=== PATIENT | female | born 1965 | race Caucasian/White ===

== ENCOUNTER 2017-06-05 08:50 | Emergency (ER) | payer BC ==
--- NOTE | 2017-06-06 09:55 | ER ---
ADMIT: 06/05/2017 RM/LOC: ER [facility] MR#: [id number] [place], [place] [id number] HUMBERTO ARMSTRONGKELLI Booth [address] [place] [address] Emergency Room Report SEX: F AGE: 52 : 1965 DATE: 06/05/2017 CHIEF COMPLAINT: Shortness of breath. HISTORY OF PRESENT ILLNESS: A 52-year-old white female, presents to the ER with 5 to 6 days duration of increasing shortness of breath. No upper respiratory symptoms. She states that she has multiple sick contacts at home. She admits to runny nose, sore throat, cough, mild shortness of breath, this is worse with physical activity and deep breath. She currently works at [employer]. She has been trying [id number] Sudafed as well as cough medicine with little improvement. Denies any productivity to her cough. No fevers or chills. PAST MEDICAL HISTORY: 1. Diabetes. 2. Bipolar. PAST SURGICAL HISTORY: 1. Hysterectomy. 2. Tonsillectomy. MEDICATIONS: 1. Metformin. 2. Zoloft. 3. Lantus. ALLERGIES: NO KNOWN DRUG ALLERGIES. SOCIAL HISTORY: Does admit to smoking history. COURSE IN THE EMERGENCY ROOM: The patient was seen and examined. GENERAL: Afebrile, nontoxic, no acute distress. HEENT: Head is normocephalic, atraumatic. Pupils are equal and reactive. Pharynx is nonexudative. There is some mild erythema. Nose has rhinorrhea and some mucosal edema. NECK: Soft and supple. No lymphadenopathy. CHEST: Decreased at the bases. There is a faint wheeze in the left lower lung base. ABDOMEN: Chest x-ray was obtained. There is no infiltrate, no signs of pneumonia. ADMIT: 06/05/2017 RM/LOC: ER [facility] MR#: [id number] [address] [id number] DANIE ARMSTRONG [address] [place] [address] Emergency Room Report SEX: F AGE: 52 : 1965 While in the department, she received dexamethasone 10 mg IM. This will elevate her blood sugars for several days, so she can expect that as she tests her blood sugar. CLINICAL IMPRESSION: 1. Upper respiratory infection. 2. Viral syndrome. DISPOSITION: Discharged home. Increase fluids. Continue home medications. Tylenol or Motrin for pain or fever. Follow up primary care as needed. Discharged home in stable condition. REAL Pierre / Alex Moon MD / akin JOB #: [id number] CC: Alex Moon MD, Attending Physician Macarena Watkins, PARKING ENFORCEMENT SPECIALIST-PLAN EXAMINER, Family Physician
== END 2017-06-05 09:45 | disposition home or self-care (01) ==
LOC: ER 08:50
DX: J06.9 Acute upper respiratory infection, unspecified (principal); B34.9 Viral infection, unspecified; E11.9 Type 2 diabetes mellitus without complications; F31.9 Bipolar disorder, unspecified; Z90.710 Acquired absence of both cervix and uterus; Z98.890 Other specified postprocedural states; Z79.4 Long term (current) use of insulin; Z79.899 Other long term (current) drug therapy